=== PATIENT | male | born 1980 | race Caucasian/White ===

== ENCOUNTER 2016-12-15 12:27 | Emergency (ER) | payer SELFPAY ==
[~2016-12-15 12:27] MED LIST: NAPROSYN DPS500 MG PO; SULFAMETHOXAZO1 EACH PO; ULTRAM DPS50 MG PO
--- NOTE | 2016-12-16 06:22 | ER ---
ADMIT: 12/15/2016 RM/LOC: ER [facility] MR#: [id number] [address] [id number] MARYAM BRUNO [address] [place] [address] Emergency Room Report SEX: M AGE: 36 : 1980 DATE: 12/15/2016 TIME: 1227 hours. Please refer to my T-sheet for complete H and P. Briefly, patient is a 36- year-old who comes in. He is two weeks postop from a fan injury to his right index finger that was severe. He had surgery 2 weeks ago. He has an appointment tomorrow with Dr. Carpenter, but it has been draining a little bit more and he wanted it looked at. He is already on an antibiotic. No pain, he rates it 0/10. PHYSICAL EXAMINATION: VITAL SIGNS: Stable. EXTREMITIES: His right upper index finger, he has a cover on it that he had replaced today. I did remove the cover as he had replaced it and already it removed himself. There was a little bit inflammation. There was no severe drainage. He is actually neurovascularly intact distally at this time. His cap refills are brisk. There is no evidence of overwhelming infection. EMERGENCY DEPARTMENT COURSE: I did give him Rocephin 1 g IM, he was already on Bactrim, he tolerated it well. He said he would keep his appointment tomorrow with Dr. Carpenter. We re-covered it with clean gauze. ASSESSMENT: 1. Status post right index finger surgery, wound check here. 2. Postop erythema, little bit inflammation, but no evidence of severe cellulitis. PLAN: Keep his appointment tomorrow. Return if worse. Keep clean and dry. Eleuterio Mcfadden MD/ jane JOB #: [id number] CC: Eleuterio Mcfadden MD, Attending Physician Silvestre Carpenter MD, Family Physician
== END 2016-12-15 13:35 | disposition home or self-care (01) ==
LOC: ER 12:27
DX: L76.82 Other postprocedural complications of skin and subcutaneous tissue (principal); L53.9 Erythematous condition, unspecified; Z79.899 Other long term (current) drug therapy; Z98.890 Other specified postprocedural states